=== PATIENT | male | born 1980 | race Caucasian/White ===

== ENCOUNTER 2018-10-25 09:06 | Outpatient (CLI) | payer OTHER, SELFPAY ==
[2018-10-25 12:33] LABS: Abs Immature Grans 0.01 k/cumm (0.0-0.09); Absolute Basophil Count 0.03 k/cumm (0.0-0.2); Absolute Eosinophil Count 0.13 k/cumm (0.0-0.7); Absolute Lymphocyte Count 0.98 k/cumm (1.2-3.4); Absolute Monocyte Count 0.27 k/cumm (0.11-0.7); Absolute Neutrophil Count 2.21 k/cumm (1.2-6.7); Basophils % 0.8; Eosinophils % 3.6; HCT 43.4 % (40.0-50.0); HGB 14.8 g/dL (13.5-17.5); Immature Grans % 0.3; Mean Corp. HGB Concentration 34.1 g/dL (32.0-36.0); Mean Corpuscular Hemoglobin 30.4 pg (27.0-33.0); Mean Corpuscular Volume 89.1 fL (80-95); Monocytes % 7.4; Neutrophils % 60.9; Platelet Count 186 x1000/uL (130-400); RBC 4.87 m/cumm (4.50-6.00); RBC Distribution Width 12.6 % (11.8-14.1); White Blood Cell Count 3.63 k/cumm (4.4-10.8)
[2018-10-25 12:52] LABS: ALT 43 U/L (16-63); AST 34 U/L (15-37); Albumin 4.2 g/dL (3.4-5.0); Alkaline Phosphatase 51 U/L (46-116); Anion Gap 8.9 mmol/L (3-11); BUN 15 mg/dL (7-18); Bilirubin, Total 0.5 mg/dL (0.2-1.0); CO2 27.1 mmol/L (21.0-32.0); CREATININE 1.19 mg/dL (0.70-1.30); Chloride 105 mmol/L (98-107); Glucose 103 mg/dL (70-100); Potassium 4.6 mmol/L (3.5-5.1); Sodium 141 mmol/L (136-145); Total Protein 7.3 g/dL (6.4-8.2)
[2018-10-28 09:28] LABS: HIV-1/2 Ag & Ab Screen Negative (NEGAT)
== END 2018-10-25 09:26 ==
PROVIDERS: PCP Family Medicine; Visit Provider Nurse Practitioner Family
DX: B37.0 Candidal stomatitis (principal); Z11.4 Encounter for screening for human immunodeficiency virus [HIV]
CPT/HCPCS: 36415; 80053; 87389; 85025

== ENCOUNTER 2020-08-02 16:27 | Outpatient (REF) | payer OTHER, SELFPAY ==
[2020-08-02 15:20] LABS: Anion Gap 8.2 mmol/L (3-11); BUN 17 mg/dL (7-18); CO2 28.8 mmol/L (21.0-32.0); CREATININE 1.2 mg/dL (0.70-1.30); Calcium 9.1 mg/dL (8.5-10.1); Calculated LDL 153 mg/dL (<100); Chloride 106 mmol/L (98-107); Cholesterol 249 mg/dL (<200); Glucose 110 mg/dL (74-106); HDL Cholesterol 56 mg/dL (40-60); Potassium 4.3 mmol/L (3.5-5.1); Sodium 143 mmol/L (136-145); Triglyceride 200 mg/dL (<150)
[2020-08-02 15:38] LABS: Hemoglobin A1C 5.4 % (<5.7)
== END 2020-08-02 16:28 | disposition home or self-care (01) ==
LOC: LBN 16:27
PROVIDERS: PCP Nurse Practitioner Family; Visit Provider Nurse Practitioner Family
DX: E78.5 Hyperlipidemia, unspecified (principal)
CPT/HCPCS: 80048; 80061; 83036

== ENCOUNTER 2020-08-02 16:42 | Outpatient (CLI) | payer OTHER, SELFPAY ==
--- NOTE | 2020-08-02 11:00 | DI.RAD_ITS ---
Exam(s) XR SHOULDER RT COMPLETE 2+V EXAM: XR SHOULDER RT COMPLETE 2+V CLINICAL HISTORY: chronic right shoulder pain M75.21 BICIPITAL TENDINITIS RT SHOUDLER. TECHNIQUE: 2D digital imaging was performed. COMPARISON: No exams were available for comparison FINDINGS: No fracture or dislocation of the humeral head-osseous glenoid. No abnormal soft tissue calcificatio ns. There is deformity of the lateral aspect of the clavicle which has the appearance of a probable healed fracture site. AC joint is not distracted. Small benign bone island is noted in the osseous glenoid. Subacromial space height is normal. Visualized upper humerus normal. Bone density normal. There is also deformity of the sub glenoid scapula which is probably related to healed fracture site. IMPRESSION: No acute fractures evident. Deformity of the lateral clavicle and subglenoid scapula are probably re lated to healed fracture sites. Correlation with prior history recommended. DATA REPOSITORY: RADIATION DOSE DELIVERED:
== END 2020-08-02 17:02 ==
PROVIDERS: PCP Nurse Practitioner Family; Visit Provider Nurse Practitioner Family
DX: M25.511 Pain in right shoulder (principal); M75.21 Bicipital tendinitis, right shoulder
CPT/HCPCS: 73030

== ENCOUNTER 2021-01-28 09:42 | Outpatient (CLI) | payer SELFPAY ==
[2021-01-29 02:02] LABS: COVID-19 RT-PCR UVMMC Result Negative (Negative)
== END 2021-01-28 09:43 | disposition home or self-care (01) ==
PROVIDERS: PCP Nurse Practitioner Family; Visit Provider Nurse Practitioner Family
DX: Z20.822 Contact with and (suspected) exposure to COVID-19 (principal)
CPT/HCPCS: U0003

== ENCOUNTER 2021-02-14 09:44 | Outpatient (CLI) | payer SELFPAY ==
[2021-02-15 23:07] LABS: COVID-19 RT-PCR UVMMC Result Negative (Negative)
== END 2021-02-14 09:45 | disposition home or self-care (01) ==
PROVIDERS: PCP Nurse Practitioner Family; Visit Provider Nurse Practitioner Family
DX: Z20.822 Contact with and (suspected) exposure to COVID-19 (principal)
CPT/HCPCS: U0003

== ENCOUNTER 2022-06-13 10:03 | Outpatient (CLI) | payer BC, SELFPAY ==
--- NOTE | 2022-06-13 08:18 | DI.RAD_ITS ---
Exam(s) XR SHOULDER LT COMPLETE 2+V EXAM: XR SHOULDER LT COMPLETE 2+V CLINICAL HISTORY: left shoulder pain. TECHNIQUE: 2D digital imaging was performed of the left shoulder. Two images were obtained. AP, Gr ashey, Y-view and axillary views were obtained. COMPARISON: CR CHEST 2 VIEWS PA,LAT from 08/07/2015 FINDINGS: BONES: No acute fracture is present. No bony destructive lesion is seen. Note is made of an os acromi lisseth. JOINTS: No dislocation present. The joint spaces are well maintained. SOFT TISSUE: Normal. IMPRESSION: No acute abnormality. DATA REPOSITORY: RADIATION DOSE DELIVERED:
== END 2022-06-13 10:04 | disposition home or self-care (01) ==
LOC: DIORS 10:03
PROVIDERS: PCP Nurse Practitioner Family; Visit Provider Student in an Organized Health Care Education/Training Program
DX: M25.512 Pain in left shoulder (principal)
CPT/HCPCS: 73030

== ENCOUNTER 2022-09-20 01:43 | Outpatient (CLI) | payer BC, SELFPAY ==
--- NOTE | 2022-09-20 07:45 | DI.MRI_ITS ---
Exam(s) MR UPPER JOINT LT WO EXAM: MR UPPER JOINT LT WO CLINICAL HISTORY: ? SLAP TEAR, LT ROTATOR CUFF TEAR, BURSITIS, M75.102, M75.52 TECHNIQUE: Multiplanar multisequence MRI of the shoulder was performed. COMPARISON: CR XR SHOULDER LT COMPLETE 2+V from 06/13/2022 FINDINGS: MARROW:There is no evidence of fracture, Hill-Sachs deformity, bony Bankart lesion, nor ominous osseo us lesions. There are few degenerative subarticular cyst in the lateral aspect of the humeral head gr eater tuberosity region. No prominent surrounding bone edema. There are no degenerative subarticula r cysts in the osseous glenoid. ROTATOR CUFF MECHANISM: AC JOINT/ACROMIUM: There is os acromiale evident.. Minimal if any significant degenerative changes in the AC joint. No downgoing osteophytes. Supraspinatus: Intact. No evidence of tear nor muscle atrophy. Infraspinatus: There is some cystic involvement of the muscular tendinous junction of the infraspinat us cystic 10 by 3 mm fluid density lung to truly orientated at the musculotendinous junction. There is no high-grade tear. There is, however, mild tendinitis signal on the articular surface side of th e tendon. No high-grade tear. No muscle atrophy. Teres Minor: Intact. No evidence of tear nor muscle atrophy. Subscapularis/anterior cuff: Minimal increased signal in the upper insertional tendon fibers. No par tial-thickness or full-thickness tear. No muscle atrophy. BICEPS TENDON/LABRUM: Not displaced from its normal position in the intertubercular groove. No fluid in the tendon sheaths to suggest tenosynovitis. There is a small focus of signal abnormality in the superior labrum at the biceps tendon attachment s ite. However, there does not appear to be significant signal abnormality in the superior labrum post erior to the biceps attachment site. posterior labrum appears intact. there is no obvious tear of the anterior labrum. no obvious tear o f the inferior labrum. inferior glenohumeral ligament appears intact. GLENOHUMERAL JOINT: No joint effusion nor obvious loose intra-articular bodies. No chondral defects. No osteophytes. No degenerative subarticular cysts. QUADRILATERAL SPACE: No evidence of mass in the region of the axillary nerve and dorsal circumflex hu meral vessels. Visualized triceps muscle at this level appears unremarkable. IMPRESSION: 1. Mild findings in the rotator cuff mechanism at the level the musculotendinous junction of the infr aspinatus, as described above. No high-grade tear. No significant findings in the supraspinatus and anterior cuff-subscapularis. No muscle atrophy evident. 2. Small focus of signal abnormality at the attachment site of the biceps tendon to the superior labr um. This is seen in all 3 planes and therefore may constitute a very small superior labral tear. Th is does not extend to the posterior labrum. There is no evidence of paralabral cyst. The biceps ten don is not torn or displaced and there is no fluid in the biceps tendon sheath. 3. Incidentally noted is os acromiale. There are minimal if any significant degenerative changes in the AC joint. There are no downgoing osteophytes at this level. DATA REPOSITORY:
== END 2022-09-20 02:03 ==
LOC: DI 01:43
PROVIDERS: PCP Nurse Practitioner Family; Visit Provider Student in an Organized Health Care Education/Training Program
DX: M75.52 Bursitis of left shoulder; M67.814 Other specified disorders of tendon, left shoulder
CPT/HCPCS: 73221

== ENCOUNTER → 2023-08-08 03:19 | Outpatient (CLI) | payer BC, SELFPAY ==
--- NOTE | 2023-08-08 07:00 | DI.MRI_ITS ---
Exam(s) MR UPPER JOINT LT WO EXAM: MR UPPER JOINT LT WO CLINICAL HISTORY: ? RTC TEAR, WORSENING SLAP OR BICEPS TENDINOPATHY, tendinitis, M75.22. TECHNIQUE: Multiplanar multisequence MRI was performed. COMPARISON: MRI 20 September 2022. Plain films 13 May 2022 FINDINGS: BONES: There is no fracture or contusion pattern. There is an os acromiale. Tiny cyst in the super ior humeral head near infraspinatus insertion. This is smaller when compared with the previous exam. JOINTS:The acromioclavicular joint is normal. The glenohumeral joint shows a trace amount of fluid. TENDONS: Supraspinatus: Unremarkable. Infraspinatus: Mild distal edema and thickening. Small fluid collection is again noted within dist al muscle fibers. Subscapularis: Unremarkable. Teres Minor: Unremarkable. Biceps and [place]: Small amount of high signal is again noted at the biceps anchor the superior labru m. MUSCLES: Unremarkable. GLENOID LABRUM: There is now some increased signal seen in the anterior labrum, not seen previously, consistent with anterior labral tear. Small cyst again noted at the inferior glenoid labrum, likely degenerative. SOFT TISSUES: Unremarkable. OTHER: Subacromial and subdeltoid bursae shows no fluid. Minimal amount of fluid in the subcoracoid bursa. . IMPRESSION: New anterior labral tear. Stable findings of infraspinatus tendinosis. Stable appearance of biceps anchor. DATA REPOSITORY:
== END ==
PROVIDERS: PCP Family Medicine; Visit Provider Student in an Organized Health Care Education/Training Program
DX: M75.122 Complete rotator cuff tear or rupture of left shoulder, not specified as traumatic
CPT/HCPCS: 73221

== ENCOUNTER 2023-08-14 09:04 | Outpatient (CLI) | payer BC, SELFPAY ==
[2023-08-14 13:07] LABS: CREATININE 1.3 mg/dL (0.70-1.30); Calculated LDL 127 mg/dL (<100); Cholesterol 227 mg/dL (<200); Estimated GFR 69.04 (mL/min/1.73m2); HDL Cholesterol 46 mg/dL (40-60); Triglyceride 270 mg/dL (<150)
[2023-08-14 13:08] LABS: Hemoglobin A1C 5.6 % (<5.7)
== END 2023-08-14 09:05 | disposition home or self-care (01) ==
LOC: LOS 09:04
PROVIDERS: PCP Family Medicine; Referring Provider Family Medicine; Visit Provider Family Medicine
DX: I10 Essential (primary) hypertension (principal); E11.51 Type 2 diabetes mellitus with diabetic peripheral angiopathy without gangrene; I70.209 Unspecified atherosclerosis of native arteries of extremities, unspecified extremity; E78.5 Hyperlipidemia, unspecified
CPT/HCPCS: 36415; 80061; 82565; 83036

== ENCOUNTER 2023-11-23 08:01 | Day surgery (SDC) | payer BC, SELFPAY ==
--- NOTE | 2023-11-22 13:49 | W.PM.DSUDISC ---
Date of service: 11/23/23 Time of Service: 10:04 Discharge Plan Disposition Patient Disposition: Home Condition: Good Discharge Details Reason For Visit: screening colonoscopy Attending Provider: Josiah Sousa Primary Care Provider: Jourdan Caputo Home Meds and New Rx's Prescriptions: Continued valacyclovir 1 gram tablet Patient Comments: TAKE 2 TABLET BY MOUTH EVERY 12 HOURS FOR 1 DAY. START AT FIRST SIGN OF COLD SORE. Discharge Instructions Additional Instructions: Jose, we were able to complete your colonoscopy today without any difficulty. Your prep was excellent and I could see everything fine. I did not see any tumors, polyps, or any other worrisome pathology. With a negative screening colonoscopy, I recommend 10-year interval for your next one. If you have any questions in the meantime, please do not hesitate to call or ask at any point. 1. If tolerated, consume a soft, low fiber diet for 1-2 days. 2[address] Do not drive, drink alcohol, operate machinery, make critical decisions, or do activities that require coordination or balance for 24 hours. 3. Because air was put into your colon during the procedure, expelling air from your rectum (passing gas or farting) is normal. 4. You may not have a bowel movement for 1-3 days because of the colonoscopy prep. This is normal. 5. Go directly to the emergency room if you notice any of the following: Develop chills (warm to touch), or if you have a thermometer and your temperature is above 101 Difficulty breathing or difficultly swallowing Persistent vomiting Severe abdominal pain, other than gas cramps Severe chest pain Black, tarry stools Any bleeding ? exceeding one tablespoon 6. Call your physician if the site where your intravenous was started becomes red, swollen, painful, and warm to touch. 7. Your physician has reviewed your pre-procedure medications. Please continue to take those medications as previously ordered. You will be given specific information/education regarding any changes to your medications before leaving. Activity:: Activity as Tolerated Diet:: As Tolerated Discharge Orders Discharge Orders: Discharge Order (Routine); Ordered 11/22/23 Ordered By: Josiah Sousa DS: Diagnosis Discharge Diagnosis (1) Encounter for screening colonoscopy: Status: Acute Asessment and Plan: Negative screening colonoscopy
--- NOTE | 2023-11-22 13:50 | W.COLOREPORT ---
Date of service: 11/23/23 Time of Service: 10:05 Colonoscopy Report Date of procedure: 11/23/23 Pre-op diagnosis general: screening colonoscopy Post-op diagnosis procedure note: other (Negative screening colonoscopy) Procedure: colonoscopy Surgeon: Josiah Sousa Anesthesia Type: General:No Airway Estimated blood loss (mL): 0 Pathology: none sent Complications: None Disposition: same day Indications: Jose is a 43 year old man who needs a screening colonsocopy Prep: Miralax/Dulcolax Procedure Start Time: 09:46 Procedure End Time: 09:58 Retraction Time: 8 Findings: Normal screening colonoscopy Procedure Description: After the induction of monitored anesthetic care, and with the patient in left lateral decubitus position, I began by performing an external anorectal exam.? Perineum and skin were normal, as was the anal verge.? There was no evidence of external hemorrhoids.? Next, I performed a digital rectal exam.? I did not appreciate any abnormal findings.? Next, I advanced a colonoscope into the rectal vault.? I performed retroflexion.? This appeared normal.? Using insufflation, I then advanced the colonoscope beyond the rectal folds and into the sigmoid colon before advancing towards the cecum.? The quality of the prep was excellent.? The scope was noted to be in the cecum by identification of the ileocecal valve and appendiceal orifice.? I then began withdrawing the colonoscope using repeated irrigation as necessary for full evaluation of the colonic mucosa. ?Once the scope was withdrawn to the level of the rectum, great care was taken to examine portions of the rectal folds.? I saw no signs of tumors, polyps, or any other abnormalities. Finally, the scope was withdrawn and the patient was brought to the same-day surgery recovery unit as the anesthetic wore off. ?The findings and instructions were shared with the patient prior to discharge. [place] Bowel Prep [place] Bowel Prep Right Colon: 3 Left Colon: 3 Transverse Colon: 3 Total Score: 9
[2023-11-23 08:38] VITALS: BP 127/85; PULSE 67; RESP 16; TEMP 36.3; O2SAT 96
[2023-11-23] MEDS: Lactated Ringers 1,000 ML 80 ML IV (09:01)
--- NOTE | 2023-11-23 09:29 | W.ANESPRE ---
General Info Date of Service Date Performed: 11/23/23 Height: 5 ft 8 in Weight: 96 kg Body Mass Index (BMI): 32.1 Surgical Procedure: Operation Date: 11/23/23 09:50 Proposed Procedure Side Surgeon p Colonoscopy Josiah Sousa MD Meds Allergies and Home Medications Allergies Allergy/AdvReac Type Severity Reaction Status Date / Time No Known Allergies Allergy Verified 11/23/23 08:34 Home Medication ?Medication ?Instructions ?Recorded valacyclovir 1 gram tablet mg 11/23/23 Current Visit Medications: Current Medications Generic Name Dose Route Start Last Admin Trade Name Freq PRN Reason Stop Dose Admin Ringer's Solution 1,000 mls @ 80 mls/hr 11/23/23 06:00 11/23/23 09:01 IV 12/22/23 23:59 80 mls/hr INFUSION ODALYS Administration IV Miscellaneous Supplies 1 each 11/23/23 06:00 Iv Access IV 12/22/23 23:59 DIRECTED ODALYS Ondansetron HCl 4 mg 11/22/23 13:56 Ondansetron 4 Mg/2 Ml Vial IVP 12/22/23 13:55 Q4H PRN PRN Nausea / Vomiting Sodium Chloride 0 ml 11/23/23 06:00 Normal Saline Flush 10 Ml Syr IV 12/22/23 23:59 PRN PRN Sodium Chloride 0 ml 11/23/23 06:00 Normal Saline 10 Ml Vial IJ 12/22/23 23:59 DIRECTED PRN Sterile Water 0 ml 11/23/23 06:00 Water,Injection,Sterile 10 Ml Vial IJ 12/22/23 23:59 DIRECTED PRN PFSH Active Problems Active Problems: Problem Status Onset Code Encounter for screening colonoscopy Acute Z12.11 Family history of cardiomyopathy Acute Z82.49 Tendinitis of long head of biceps brachii of left shoulder Acute M75.22 Left rotator cuff tear Acute M75.102 Bursitis of left shoulder Acute M75.52 Arthritis of right acromioclavicular joint Chronic M19.011 Hyperlipidemia Chronic E78.5 Surgical History Surgical History History of throat surgery Noncancerous polyp excised S/P craniotomy (08/05/00) For depressed skull fracture-@0+ years ago S/P eye surgery (08/05/00) Left eyelid reconstruction surgery Hx of vasectomy Tobacco Smoking/Tobacco Use Status: Former Tobacco Use Smokeless tobacco user: chewing tobacco Passive smoking exposure: No Second hand exposure: No Alcohol Alcohol Intake: current Alcohol intake frequency: a few times a month Alcohol type: beer Substance Use Substance use: Occasionally Substance use type: marijuana Vital Signs and Lab Results Vital Signs Most Recent Vital Signs in EMR: Most Recent Vital Signs Temp Pulse Resp BP Pulse Ox 36.3 C L 67 16 127/85 96 11/23/23 08:38 11/23/23 08:38 11/23/23 08:38 11/23/23 08:38 11/23/23 08:38 Lab Results Blood Type / Crossmatch: No Data to Display Complete Blood Count: No Data to Display Complete Metabolic Panel: No Data to Display Liver Function Panel: No Data to Display Coagulation Panel: No Data to Display Cardiac Panel: No Data to Display Arterial Blood Gas: No Data to Display Venous Blood Gas: No Data to Display Pancreas Panel: No Data to Display Thyroid Panel: No Data to Display Infectious Disease: No Data to Display Blood Cultures: No Data to Display Toxicology Panel: No Data to Display Anesthesia Assessment and Plan Anesthesia History Personal History: No History of Anesthesia Complications Family History: No Family History of Anesthesia Complications Exercise Tolerance Exercise Tolerance: Metabolic Equivalents>4 Pertinent Negatives Pertinent Negatives: No Symptoms of GERD Cardiac & Pulmonary Exam Cardiac Exam: Normal S1/S2 Heart Sounds Pulmonary Exam: Clear Bilateral Breath Sounds Implantable Cardiac Device Does patient have a Pacemaker or an ICD?: No Airway Exam Known Difficult Airway: No Mallampati Class: 1 Mouth Opening: Normal (> 3cm) Thyromental Distance: Greater than 3 cm Neck Range of Motion: Full ROM Neck Circumference: Normal Teeth Condition: Normal Dentition ASA Classification ASA Score: ASA 2 Emergency Case?: No NPO Status NPO Status: NPO Clears >2 hours, Solids >8 hours Anesthesia Plan Resuscitation Status: Full Code Anesthesia Technique: General Anesthesia Airway Planned: Natural Airway Monitors Used: Standard Monitors
[2023-11-23 09:32] VITALS: BMI 32.1
[2023-11-23 10:04] VITALS: BP 118/85; PULSE 81; RESP 16; TEMP 36.6; O2SAT 94
--- NOTE | 2023-11-23 10:27 | W.ANESPOSTOP ---
Postoperative Evaluation Date, Time and Location Date Performed: 11/23/23 Time Performed: 10:14 Patient Location: Day Surgery Unit Vital Signs Most Recent Imported Vital Signs: Most Recent Vital Signs Temp Pulse Resp BP Pulse Ox 36.6 C 81 16 118/85 94 11/23/23 10:04 11/23/23 10:04 11/23/23 10:04 11/23/23 10:04 11/23/23 10:04 Pain Score Most Recent Pain Score: Most Recent Pain Score Pain Level 0 11/23/23 10:04 Assessment Mental Status: Awake (Alert & Oriented to Patient Baseline) Airway and Respiratory Function: Patent airway with normal (patient baseline) respiratory exam Cardiovascular Function: Hemodynamically Stable Hydration Status: Adequately Hydrated Nausea & Vomiting: No Nausea or Vomiting Pain: Pt. Denies Any Pain Peripheral Nerve Block: Patient did not receive a nerve block
[2023-11-23 10:34] VITALS: BP 125/97; PULSE 56; RESP 18; TEMP 36.9; O2SAT 97
== END 2023-11-23 10:56 | disposition home or self-care (01) ==
LOC: SUR 08:01
PROVIDERS: PCP Family Medicine; Visit Provider Surgery
PROC: 0DJD8ZZ Inspection of Lower Intestinal Tract, Via Natural or Artificial Opening Endoscopic (ICD-10-PCS; CPT 45378; principal; 2023-11-23 09:45)
DX: Z12.11 Encounter for screening for malignant neoplasm of colon (principal)
CPT/HCPCS: 45378; J2704

== ENCOUNTER 2024-09-30 03:33 | Outpatient (CLI) | payer OTHER, SELFPAY ==
[2024-09-30 15:27] LABS: Calculated LDL 136 mg/dL (<100); Cholesterol 205 mg/dL (<200); HDL Cholesterol 51 mg/dL (>or=40); Triglyceride 94 mg/dL (<150)
== END 2024-09-30 03:34 | disposition home or self-care (01) ==
LOC: LOS 03:33
PROVIDERS: PCP Family Medicine; Visit Provider Family Medicine
DX: E78.5 Hyperlipidemia, unspecified (principal)
CPT/HCPCS: 36415; 80061; 83695